=== PATIENT | male | born 1980 | race Caucasian/White ===

== ENCOUNTER 2018-03-10 17:02 | Emergency (ER) | payer OTHER ==
[~2018-03-10] VITALS: Ht 185.4 cm; Wt 106.6 kg
[~2018-03-10 17:02] MED LIST: CLONAZEPAM 1 MG1 M1 PO; CYMBALTA60 MG PO; FLEXERIL PO; ONDANSETRON HCL4 M2 PO; PERCOCET PO; ROXICODONE5 MG PO; TENEX PO
[2018-03-10] MEDS ORDERED: SUBOXONE 8 MG-1 EAC3 SUBLING (17:09)
[2018-03-10] MEDS ORDERED: PROZAC10 MG PO (17:09)
[2018-03-10] MEDS ORDERED: CLARITIN10 MG PO (17:10)
[2018-03-10] MEDS ORDERED: METHOCARBAMOL500 M2 PO (17:10)
[2018-03-10] MEDS ORDERED: QUETIAPINE FUM200 MG PO (17:11)
[2018-03-10 18:12] LABS: ABSOLUTE NEUTROPHILS 6.8 thou/uL (1.4-8.2); BASOPHILS 0.5 % (0.0-2.0); EOSINOPHILS 2.1 % (0.0-3.0); HEMATOCRIT 41.5 % (42.0-52.0); HEMOGLOBIN 14.5 gm/dL (14.0-18.0); LYMPHOCYTES 18.4 % (24.0-44.0); MCH 30.8 pg (26.0-34.0); MONOCYTES 7.3 % (1.0-8.0); PLATELET COUNT 215 thou/uL (150-400); POLYS 71.7 % (36.0-66.0); RBC 4.71 mil/uL (4.50-6.00); RDW 12.9 % (10.5-14.5); WBC 9.4 thou/uL (4.0-11.0)
[2018-03-10 18:18] LABS: CALCIUM 9.9 mg/dL (8.5-10.1); CREATININE 1.3 mg/dL (0.7-1.3); POTASSIUM 3.8 mmol/L (3.5-5.1)
[2018-03-10] MEDS ORDERED: FLEXERIL PO (20:11)
[2018-03-10 20:39] VITALS: BP 137/79
[2018-03-10] MEDS ORDERED: TRAMADOL 50 MG50 MG PO (20:50)
== END 2018-03-10 20:40 | disposition home or self-care (01) ==
LOC: ER 17:02
PROVIDERS: Emergency Medicine
DX: S16.1XXA Strain of muscle, fascia and tendon at neck level, initial encounter (principal); S29.012A Strain of muscle and tendon of back wall of thorax, initial encounter; G89.4 Chronic pain syndrome; F41.9 Anxiety disorder, unspecified; F32.9 Major depressive disorder, single episode, unspecified; M19.90 Unspecified osteoarthritis, unspecified site; F17.200 Nicotine dependence, unspecified, uncomplicated; Z88.8 Allergy status to other drugs, medicaments and biological substances; V49.40XA Driver injured in collision with unspecified motor vehicles in traffic accident, initial encounter; Y93.89 Activity, other specified; Y92.89 Other specified places as the place of occurrence of the external cause; Y99.8 Other external cause status